=== PATIENT | male | born 1965 | race American Indian/Alaskan Native ===

== ENCOUNTER 2022-04-02 15:32 | Emergency (ER) | payer OTHER ==
--- NOTE | 2022-04-02 23:33 | Emergency Department Report ---
ED General Adult HPI - General Chief complaint: Extremity Injury, Lower Stated complaint: LEG PAIN Time Seen by Provider: 04/02/22 22:39 Source: patient Mode of arrival: Ambulatory Limitations: No Limitations - History of Present Illness Initial comments: 56-year-old male past medical history hypertension diabetes reports to the ER with complaints of right upper leg pain. Patient reports having a femur fracture 7 years ago with hardware replacement. Patient reports no recent injury to his right leg to cause this increasing pain. Patient reports he has been having intermittent pain for the last 2 weeks but yesterday the pain increased and has not been able to controlled with [id number] medication. No chills no fever no dizziness no weakness reported. Severity scale (0 -10): 10 - Related Data Previous Rx's Medication Instructions Recorded Last Taken Type Acetaminophen/Codeine [Tylenol 1 tab PO Q6H PRN 2 Days #8 tab 04/03/22 Unknown Rx /Codeine # 3 tab] Ibuprofen [Motrin] 600 mg PO Q8H PRN 6 Days #18 tablet 04/03/22 Unknown Rx methOCARBAMOL [Robaxin TAB] 500 mg PO BID PRN 7 Days #14 tab 04/03/22 Unknown Rx Allergies Allergy/AdvReac Type Severity Reaction Status Date / Time No Known Allergies Allergy Verified 04/02/22 23:35 ED Review of Systems ROS: Stated complaint: LEG PAIN Other details as noted in HPI Comment: All other systems reviewed and negative Musculoskeletal: other (Right leg pain) ED Past Medical Hx - Past Medical History Previous Medical History?: Yes Hx Hypertension: Yes Hx Diabetes: Yes - Surgical History Past Surgical History?: Yes - Medications Home Medications: Home Medications Medication Instructions Recorded Confirmed Last Taken Type Acetaminophen/Codeine [Tylenol 1 tab PO Q6H PRN 2 Days #8 tab 04/03/22 Unknown Rx /Codeine # 3 tab] Ibuprofen [Motrin] 600 mg PO Q8H PRN 6 Days #18 tablet 04/03/22 Unknown Rx methOCARBAMOL [Robaxin TAB] 500 mg PO BID PRN 7 Days #14 tab 04/03/22 Unknown Rx ED Physical Exam - General Limitations: No Limitations General appearance: alert, in no apparent distress - Head Head exam: Present: atraumatic, normocephalic - Eye Eye exam: Present: normal appearance - ENT ENT exam: Present: mucous membranes moist - Neck Neck exam: Present: normal inspection - Respiratory Respiratory exam: Present: normal lung sounds bilaterally. Absent: respiratory distress - Cardiovascular Cardiovascular Exam: Present: regular rate, normal rhythm. Absent: systolic murmur, diastolic murmur, rubs, gallop - GI/Abdominal GI/Abdominal exam: Present: soft, normal bowel sounds - Rectal Rectal exam: Present: deferred - Extremities Exam Extremities exam: Present: normal inspection - Expanded Lower Extremity Exam Right Upper Leg exam: Present: tenderness. Absent: deformity, dislocation, erythema - Back Exam Back exam: Present: normal inspection - Neurological Exam Neurological exam: Present: alert, oriented X3 - Psychiatric Psychiatric exam: Present: normal affect, normal mood - Skin Skin exam: Present: warm, dry, intact, normal color. Absent: rash ED Course Vital Signs 04/02/22 04/03/22 15:37 02:15 Temperature 98.8 F Pulse Rate 90 94 H Respiratory 20 14 Rate Blood Pressure 159/84 184/108 [Right] O2 Sat by Pulse 99 99 Oximetry ED Medical Decision Making - Radiology Data [facility] [address] [place] [address] XRay Report Signed Patient: RAINER LORENZO MR#: [id number] 223 : 1965 Acct:[id number] Age/Sex: 56 / M ADM Date: 04/02/22 Loc: ED Attending Dr: Ordering Physician: NATALIO THOMPSON NP Date of Service: 04/02/22 Procedure(s): XR hip 2-3V RT Accession Number(s): [id number] cc: NATALIO THOMPSON NP Fluoro Time In Minutes: RIGHT HIP 2 VIEWS 2347 INDICATION: right leg pain COMPARISON: None available. FINDINGS: Intramedullary rods are seen transfixing an old proximal femoral fracture on the right. No obvious acute fractures or dislocations are seen. Moderate bilateral hip degenerative changes. RIGHT FEMUR 2 VIEWS 2348 INDICATION: right leg pain COMPARISON: None available. FINDINGS: Intramedullary rods are seen transfixing an old proximal femoral fracture. Extensive healing is seen. No definite acute fractures or dislocations are noted. Signer Name: Ottoniel Willoughby MD Signed: 04/03/2022 12:58 AM Workstation Name: [id number] Transcribed By: GJ Dictated By: Ottoniel Willoughby MD Electronically Authenticated By: Ottoniel Willoughby MD Signed Date/Time: 04/03/2257 DD/ TD/TT:[facility] [address] [place] [address] XRay Report Signed Patient: RAINER LORENZO MR#: [id number] 223 : 1965 Acct:[id number] Age/Sex: 56 / M ADM Date: 04/02/22 Loc: ED Attending Dr: Ordering Physician: NATALIO THOMPSON NP Date of Service: 04/02/22 Procedure(s): XR femur 2+V RT Accession Number(s): [id number] cc: NATALIO THOMPSON NP Fluoro Time In Minutes: RIGHT HIP 2 VIEWS 2347 INDICATION: right leg pain COMPARISON: None available. FINDINGS: Intramedullary rods are seen transfixing an old proximal femoral fracture on the right. No obvious acute fractures or dislocations are seen. Moderate bilateral hip de generative changes. RIGHT FEMUR 2 VIEWS 2348 INDICATION: right leg pain COMPARISON: None available. FINDINGS: Intramedullary rods are seen transfixing an old proximal femoral fra cture. Extensive healing is seen. No definite acute fractures or dislocations are noted. Signer Name: Ottoniel Willoughby MD Signed: 04/03/2022 12:58 AM Workstation Name: [id number] Transcribed By: GJ Dictated By: Ottoniel Willoughby MD Electronically Authenticated By: Ottoniel Willoughby MD Signed Date/Time: 04/03/2257 DD/ TD/TT: - Medical Decision Making 56-year-old male past medical history hypertension diabetes reports to the ER with complaints of right upper leg pain. Patient reports having a femur fracture 7 years ago with hardware replacement. Patient reports no recent injury to his right leg to cause this increasing pain. Patient reports he has been having intermittent pain for the last 2 weeks but yesterday the pain increased and has not been able to controlled with alar-yeb-gwflpzl medication. No chills no fever no dizziness no weakness reported. Right upper hip tenderness noted. No swelling no erythema. No open wound. No dislocation. No deformity. Right hip x-ray shows no acute process noted. Patient reports a decrease in pain after receiving oral pain medication. Patient informed to follow-up with his primary care provider. Patient giving orthopedic referral and informed to follow orthopedics. Patient agrees with plan of care and verbalized understanding. Informed if symptoms are to get worse to report back to the ER. Vital Signs 04/02/22 04/03/22 15:37 02:15 Temperature 98.8 F Pulse Rate 90 94 H Respiratory 20 14 Rate Blood Pressure 159/84 184/108 [Right] O2 Sat by Pulse 99 99 Oximetry Critical care attestation.: If time is entered above; I have spent that time in minutes in the direct care of this critically ill patient, excluding procedure time. ED Disposition Clinical Impression: Right leg pain Disposition: HOME / SELF CARE / HOMELESS Is pt being admited?: No Condition: Stable Instructions: Musculoskeletal Pain Prescriptions: Ibuprofen [Motrin] 600 mg PO Q8H PRN 6 Days #18 tablet PRN Reason: Pain methOCARBAMOL [Robaxin TAB] 500 mg PO BID PRN 7 Days #14 tab PRN Reason: muscle spasm Acetaminophen/Codeine [Tylenol /Codeine # 3 tab] 1 tab PO Q6H PRN 2 Days #8 tab PRN Reason: Pain , Severe (7-10) Referrals: DAVID GUILLEN MD [Staff Physician] - 3-5 Days RODRICK PETERS MD [Staff Physician] - 3-5 Days
[2022-04-03] MEDS ORDERED: oxyCODONE /ACETAMINOPHEN 5-325MG TAB PO ONE (00:15)
--- NOTE | 2022-04-03 01:03 | XRay Report ---
RIGHT HIP 2 VIEWS 2347 INDICATION: right leg pain COMPARISON: None available. FINDINGS: Intramedullary rods are seen transfixing an old proximal femoral fracture on the right. No obvious acute fractures or dislocations are seen. Moderate bilateral hip degenerative changes. RIGHT FEMUR 2 VIEWS 2348 INDICATION: right leg pain COMPARISON: None available. FINDINGS: Intramedullary rods are seen transfixing an old proximal femoral fracture. Extensive healin g is seen. No definite acute fractures or dislocations are noted. Signer Name: Ottoniel Willoughby MD Signed: 04/03/2022 12:58 AM Workstation Name: [id number]
[2022-04-03] MEDS ORDERED: KETOROLAC 60 MG/2 ML INJ IM ONE (01:42)
[2022-04-03 02:24] VITALS: BP 184/108
== END 2022-04-03 02:35 | disposition home or self-care (01) ==
LOC: ED 15:32
DX: M79.604 Pain in right leg (principal)
CPT/HCPCS: 73502; 73552; 96372; 99283; J1885